=== PATIENT | female | born 1955 ===

== ENCOUNTER 2023-12-23 15:24 | Inpatient (IN) | payer OTHER ==
[~2023-12-23] VITALS: Ht 172.7 cm; Wt 150.5 kg
[2023-12-23] MEDS: DEXTROSE 50%-WATER 25 GM/50 ML SYRINGE IVP ONE ×2 (15:15→15:30)
[2023-12-23 15:36] VITALS: PULSE 89; RESP 18; O2SAT 100
[2023-12-23] MEDS ORDERED: 0.9% SODIUM CHLORIDE 10 ML SYRINGE IVP PRN (15:45)
[2023-12-23] MEDS: NOREPINEPHRINE 8 MG/0.9 % NACL 250 ML IV PRN (15:45)
[2023-12-23 16:00] LABS: HEMATOCRIT 30.3 % (36-46); HEMOGLOBIN 9.3 g/dL (12.0-16.0); MEAN CORPUSCULAR HEMOGLOBIN 28.4 pg (26.0-34.0); MEAN CORPUSCULAR HGB CONC 30.7 G/dL (31.0-37.0); MEAN CORPUSCULAR VOLUME 93 fL (80-100); RED BLOOD CELL COUNT(AUTO) 3.28 MIL/uL (4.00-5.20)
[2023-12-23 16:12] LABS: ABG CARBOXYHEMOGLOBIN 1.3 % (0.0-1.5); ABG HCO3 14.3 mmol/L (22.0-26.0); ABG METHEMOGLOBIN 0.9 % (0.0-1.5); ABG OXYGEN CONTENT 15.2 mL/dL (15.0-23.0); ABG OXYGEN SATURATION 99.8 % (95.0-98.0); ABG OXYHEMOGLOBIN 97.6 % (94.0-100.0); ABG PCO2 31 mmHg (35-45); ABG PH 7.249 (7.35-7.450); ABG TOTAL HEMOGLOBIN 10.1 G/dL (12.0-18.0); ALLEN TEST, BLOOD GAS Positive; PO2, ARTERIAL BG 475.3 mmHg (79.0-87.0); SITE, BLOOD GAS RT RADIAL; SOURCE, BLOOD GAS ARTERIAL; TEMPERATURE, FAHRENHEIT, BG 96.1 FAHREN (96.0-98.6)
[2023-12-23 16:12] LABS: ANION GAP 25 mmol/L (8-16); CALCIUM, TOTAL 10.2 mg/dL (8.8-10.5); CARBON DIOXIDE 17 mmol/L (22-29); CHLORIDE 96 mmol/L (98-107); CREATININE 4.98 mg/dL (0.60-1.30); GLOMERULAR FILTR. RATE CALC 9 mL/min (>60); GLUCOSE,RANDOM 54 mg/dL (70-110); POTASSIUM 5.2 mmol/L (3.5-5.1); SODIUM SERUM 138 mmol/L (136-145); UREA NITROGEN, BLOOD 48 mg/dL (7-18)
[2023-12-23 16:13] LABS: ABG A-A DIFF O2 210.1 mmHg (10-20.0); O2 DEVICE,BLOOD GAS VENTILATOR (ROOM AIR); PEEP,BG 5 cm H2O; SPONTANEOUS VT, BG 453 ml; VT, ABG 430 ml
[2023-12-23 16:15] LABS: INR 3.1 (0.9-1.1); PROTHROMBIN TIME 30.5 SEC (9.4-11.6)
[2023-12-23] MEDS ORDERED: ALLO-45 PO (16:17)
[2023-12-23] MEDS ORDERED: CHOL50002 PO (16:17)
[2023-12-23] MEDS ORDERED: BISA10SU11 PR (16:17)
[2023-12-23] MEDS ORDERED: SIMV-260 PO (16:17)
[2023-12-23] MEDS ORDERED: FOLI-130 PO (16:17)
[2023-12-23] MEDS ORDERED: LACT10SO10 PO (16:17)
[2023-12-23] MEDS ORDERED: LEVO75 PO (16:17)
[2023-12-23] MEDS ORDERED: PHOSLOC PO (16:17)
[2023-12-23] MEDS ORDERED: MINE133E26 PR (16:17)
[2023-12-23] MEDS ORDERED: MIDO5TAB29 PO (16:17)
[2023-12-23] MEDS ORDERED: PRED5DRO25 OS (16:17)
[2023-12-23] MEDS ORDERED: LORA10TA7 PO (16:17)
[2023-12-23] MEDS ORDERED: TUBE5VIA TD (16:17)
[2023-12-23] MEDS ORDERED: APIX5TAB PO (16:17)
[2023-12-23] MEDS ORDERED: ACET-784 PO (16:17)
[2023-12-23] MEDS ORDERED: HYDR-4062 PO (16:17)
[2023-12-23] MEDS ORDERED: OMEP20 PO (16:17)
[2023-12-23] MEDS ORDERED: ALBU18HF12 IH (16:17)
[2023-12-23] MEDS ORDERED: METO25XL PO (16:17)
[2023-12-23] MEDS ORDERED: ACET-2247 PO (16:17)
[2023-12-23] MEDS: SODIUM CHLORIDE 0.9% 2,300 ML IV ONE (16:20)
[2023-12-23] MEDS: ETOMIDATE 2 MG/ML 10 ML VIAL IVP ONE (16:21)
[2023-12-23 16:23] LABS: TROPONIN I-HIGH SENSITIVITY 96 ng/L (<51)
[2023-12-23] MEDS: ROCURONIUM BROMIDE 10 MG/ML 5 ML VIAL IVP ONE (16:23)
[2023-12-23 16:24] LABS: B-TYPE NATRIURETIC PEPTIDE 2420 pg/mL (0-100); LACTIC ACID 12.1 mmol/L (0.4-2.0)
[2023-12-23 16:25] LABS: ALANINE AMINOTRANSFERASE 175 U/L (12-78); ALBUMIN 3.3 g/dL (3.4-5.0); ALKALINE PHOSPHATASE 456 U/L (46-116); ASPARTATE AMINOTRANSFERASE 962 U/L (15-37); BILIRUBIN,TOTAL 4.5 mg/dL (0.1-1.0); TOTAL PROTEIN, SERUM 7.1 g/dL (6.4-8.2)
[2023-12-23 16:45] LABS: PLATELET COUNT (AUTO) 23 K/uL (150-450)
[2023-12-23] MEDS: PIPERACILLIN/TAZO 3.375 GM/D5W 50 ML IV ONE (16:45)
[2023-12-23 16:46] LABS: BAND NEUTROPHILS % (MANUAL) 0 % (0-5)
[2023-12-23 16:48] LABS: CORRECTED WHITE BLOOD COUNT 9.9 K/uL (4.5-11.0); LYMPHOCYTES % (MANUAL) 7 % (22-44); MONOCYTES % (MANUAL) 6 % (2-9); SEGMENTED NEUTROPHILS % 87 % (40-70); TOTAL CELLS COUNTED 100; WHITE BLOOD COUNT (AUTO) 9.9 K/uL (4.5-11.0)
[2023-12-23 16:49] LABS: RBC MORPHOLOGY COMMENT DIMORPHIC RBC
[2023-12-23 17:31] LABS: APPEARANCE,URINE HAZY (CLEAR); BILIRUBIN,URINE NEGATIVE (NEGATIVE); COLOR,URINE DARK YELLOW (YELLOW); GLUCOSE, URINE (UA) TRACE mg/dL (NEGATIVE); KETONES,URINE TRACE mg/dL (NEGATIVE); LEUKOCYTE ESTERASE ,URINE TRACE (NEGATIVE); NITRATE,URINE NEGATIVE (NEGATIVE); OCCULT BLOOD,URINE MODERATE (NEGATIVE); PROTEIN,URINE 30-70 mg/dL (NEGATIVE); SPECIFIC GRAVITIY, URINE 1.026 (1.003-1.030); UROBILINOGEN,URINE <=1.0 mg/dL (<=1.0)
[2023-12-23 17:41] LABS: SQUAMOUS EPITHELIAL CELL,UR Many /LPF (None Seen)
[2023-12-23 17:43] LABS: BACTERIA,URINE Moderate /HPF (None Seen)
[2023-12-23 19:07] LABS: COVID AG,FIA SOURCE NASAL SWAB
[2023-12-23 19:33] VITALS: PULSE 89; RESP 18; O2SAT 99
[2023-12-23 19:34] VITALS: PULSE 89; RESP 18; O2SAT 99
[2023-12-23 20:08] LABS: SARS-COV2 (COVID) ANTIGEN,FIA Negative (Negative)
[2023-12-23] MEDS: VANCOMYCIN 1.75GM/WATER(PEG) 350 ML IV ONE (22:09)
[2023-12-23 22:25] VITALS: PULSE 95; RESP 18; O2SAT 100
[2023-12-23 23:02] VITALS: BP 108/45; RESP 18
[2023-12-23 23:59] VITALS: BP 107/38; PULSE 90; RESP 18
[2023-12-24] VITALS (16 sets, daily range): BP systolic 96–112; BP diastolic 29–54; PULSE 81–90; RESP 18–22; TEMP 94–96.8; O2SAT 99–100
[2023-12-24] MEDS: PIPERACILLIN SODIUM/TAZOBACTAM 2.25 GM in DEXTROSE 5%-WATER 50 ML IV SCH (01:27)
[2023-12-24] MEDS: PROPOFOL 1000 MG/ISO-OSM 100 ML IV PRN ×2 (02:14→06:37)
[2023-12-24 03:06] LABS: GLUCOMETER DEV NAME(LOC) ERT.5; GLUCOSE,POINT OF CARE 84 MG/DL (70-110)
[2023-12-24] MEDS: NOREPINEPHRINE 8 MG/0.9 % NACL 250 ML IV PRN (06:37)
[2023-12-24] MEDS ORDERED: VANCOMYCIN 1GM/WATER(PEG/NADA) 200 ML IV PRN (07:45)
[2023-12-24 08:58] LABS: HEMATOCRIT 31.2 % (36-46); HEMOGLOBIN 9.7 g/dL (12.0-16.0); MEAN CORPUSCULAR HEMOGLOBIN 28.4 pg (26.0-34.0); MEAN CORPUSCULAR HGB CONC 31.2 G/dL (31.0-37.0); MEAN CORPUSCULAR VOLUME 91 fL (80-100); PLATELET COUNT (AUTO) 22 K/uL (150-450); RED BLOOD CELL COUNT(AUTO) 3.43 MIL/uL (4.00-5.20); RED CELL DISTRIBUTION WIDTH 28.2 % (11.5-14.5)
[2023-12-24] MEDS ORDERED: DEXTROSE 50%-WATER 25 GM/50 ML SYRINGE IVP ONE (09:30)
[2023-12-24] MEDS: DEXTROSE 50%-WATER 25 GM/50 ML SYRINGE IVP PRN (09:44)
[2023-12-24] MEDS: POTASSIUM CHLORIDE 15 MEQ in NXSTAGE RFP-402 K0/CA3 5,000 ML IRRIG PRN (09:44)
[2023-12-24 10:06] LABS: CALCIUM, TOTAL 8.9 mg/dL (8.8-10.5); CREATININE 3.45 mg/dL (0.60-1.30); POTASSIUM 4.1 mmol/L (3.5-5.1)
[2023-12-24 10:26] LABS: BAND NEUTROPHILS % (MANUAL) 1 % (0-5); CORRECTED WHITE BLOOD COUNT 13.9 K/uL (4.5-11.0); LYMPHOCYTES % (MANUAL) 8 % (22-44); MONOCYTES % (MANUAL) 10 % (2-9); SEGMENTED NEUTROPHILS % 81 % (40-70); TOTAL CELLS COUNTED 100; WHITE BLOOD COUNT (AUTO) 13.9 K/uL (4.5-11.0)
[2023-12-24 11:16] LABS: GLUCOMETER DEV NAME(LOC) ICU.S6; GLUCOSE,POINT OF CARE < 10 MG/DL (70-110)
[2023-12-24 12:55] LABS: GLUCOMETER DEV NAME(LOC) ICUN.5; GLUCOSE,POINT OF CARE 112 MG/DL (70-110)
[2023-12-24 12:55] LABS: GLUCOMETER DEV NAME(LOC) ICUN.5; GLUCOSE,POINT OF CARE 92 MG/DL (70-110)
[2023-12-24 12:55] LABS: GLUCOMETER DEV NAME(LOC) ICUN.5; GLUCOSE,POINT OF CARE 18 MG/DL (70-110)
[2023-12-24 12:55] LABS: GLUCOMETER DEV NAME(LOC) ICUN.5; GLUCOSE,POINT OF CARE 98 MG/DL (70-110)
[2023-12-24] MEDS ORDERED: SODIUM CITRATE 4% CATH FLUSH 5 ML SYRINGE IVCATH PRN (13:00)
[2023-12-24 13:10] LABS: GLUCOMETER DEV NAME(LOC) ICUN.5; GLUCOSE,POINT OF CARE 101 MG/DL (70-110)
[2023-12-24] MEDS ORDERED: NOREPINEPHRINE 8 MG/0.9 % NACL 250 ML IV PRN (13:30)
[2023-12-24] MEDS: *CLINICAL-RX DOSING [ENTER DRUG IN COMMENTS] CLINICAL ONE (15:41)
[2023-12-24 15:47] LABS: ALBUMIN 2.9 g/dL (3.4-5.0); BILIRUBIN,DIRECT 4.1 mg/dL (0.00-0.20); BILIRUBIN,TOTAL 5.5 mg/dL (0.1-1.0); CALCIUM, TOTAL 8.4 mg/dL (8.8-10.5); CREATININE 2.93 mg/dL (0.60-1.30); MAGNESIUM 2.1 mg/dL (1.80-2.40); PHOSPHORUS 3.7 mg/dL (2.5-4.9); POTASSIUM 3.7 mmol/L (3.5-5.1); TOTAL PROTEIN, SERUM 6.8 g/dL (6.4-8.2)
[2023-12-24] MEDS: CIPROFLOXACIN 400 MG/D5% WATER 200 ML IV SCH (16:28)
[2023-12-24 19:39] LABS: CALCIUM, TOTAL 8.9 mg/dL (8.8-10.5); CREATININE 2.69 mg/dL (0.60-1.30); MAGNESIUM 2.1 mg/dL (1.80-2.40); POTASSIUM 3.6 mmol/L (3.5-5.1)
[2023-12-24 20:46] LABS: GLUCOMETER DEV NAME(LOC) ICU.S6; GLUCOSE,POINT OF CARE 133 MG/DL (70-110)
[2023-12-24] MEDS: NOREPINEPHRINE BITARTRATE 8 MG in DEXTROSE 5%-WATER 242 ML IV PRN (21:27)
[2023-12-24 22:31] LABS: CREATININE 2.41 mg/dL (0.60-1.30); MAGNESIUM 2.2 mg/dL (1.80-2.40); PHOSPHORUS 3.1 mg/dL (2.5-4.9); POTASSIUM 4.3 mmol/L (3.5-5.1)
[2023-12-24] MEDS: PHENYLEPHRINE 200 MG/D5%-WATER 250 ML IV PRN (22:45)
[2023-12-25] VITALS (15 sets, daily range): BP systolic 106–128; BP diastolic 22–49; PULSE 91–105; RESP 18–22; TEMP 95.2–97.6; O2SAT 100
[2023-12-25] MEDS: VASOPRESSIN 40 UNITS in DEXTROSE 5%-WATER 98 ML IV PRN (00:16)
[2023-12-25 01:00] LABS: GLUCOMETER DEV NAME(LOC) ICU.S6; GLUCOSE,POINT OF CARE 106 MG/DL (70-110)
[2023-12-25 01:00] LABS: GLUCOMETER DEV NAME(LOC) ICUN.5; GLUCOSE,POINT OF CARE 83 MG/DL (70-110)
[2023-12-25 02:11] LABS: CREATININE 2.28 mg/dL (0.60-1.30); MAGNESIUM 2.2 mg/dL (1.80-2.40); PHOSPHORUS 2.7 mg/dL (2.5-4.9); POTASSIUM 4.1 mmol/L (3.5-5.1)
[2023-12-25 05:35] LABS: ALBUMIN 2.7 g/dL (3.4-5.0); CALCIUM, TOTAL 8.9 mg/dL (8.8-10.5); CREATININE 2.12 mg/dL (0.60-1.30); HEMATOCRIT 31.4 % (36-46); HEMOGLOBIN 9.9 g/dL (12.0-16.0); MEAN CORPUSCULAR HEMOGLOBIN 28.8 pg (26.0-34.0); MEAN CORPUSCULAR HGB CONC 31.5 G/dL (31.0-37.0); MEAN CORPUSCULAR VOLUME 92 fL (80-100); PLATELET COUNT (AUTO) 20 K/uL (150-450); POTASSIUM 4.5 mmol/L (3.5-5.1); RED BLOOD CELL COUNT(AUTO) 3.44 MIL/uL (4.00-5.20); RED CELL DISTRIBUTION WIDTH 28.3 % (11.5-14.5); TOTAL PROTEIN, SERUM 6.5 g/dL (6.4-8.2); VANCOMYCIN,RANDOM 10.6 mcg/mL (25.0-50.0)
[2023-12-25 05:40] LABS: GLUCOMETER DEV NAME(LOC) ICU.S6; GLUCOSE,POINT OF CARE 129 MG/DL (70-110)
[2023-12-25 05:45] LABS: CREATININE 2.21 mg/dL (0.60-1.30); MAGNESIUM 2.2 mg/dL (1.80-2.40); PHOSPHORUS 2.6 mg/dL (2.5-4.9); POTASSIUM 3.7 mmol/L (3.5-5.1)
[2023-12-25 06:29] LABS: BAND NEUTROPHILS % (MANUAL) 4 % (0-5); LYMPHOCYTES % (MANUAL) 8 % (22-44); MONOCYTES % (MANUAL) 7 % (2-9); SEGMENTED NEUTROPHILS % 81 % (40-70); TOTAL CELLS COUNTED 100
[2023-12-25 06:31] LABS: CORRECTED WHITE BLOOD COUNT 10.6 K/uL (4.5-11.0); WHITE BLOOD COUNT (AUTO) 11.4 K/uL (4.5-11.0)
[2023-12-25 06:32] LABS: RBC MORPHOLOGY COMMENT DIMORPHIC RBC
[2023-12-25] MEDS: VANCOMYCIN 1GM/WATER(PEG/NADA) 200 ML IV ONE (08:27)
[2023-12-25] MEDS ORDERED: DEXMEDETOMIDINE HCL 400 MCG in SODIUM CHLORIDE 0.9% 96 ML IV PRN (09:45)
[2023-12-25] MEDS: PIPERACILLIN/TAZO 3.375 GM/D5W 50 ML IV SCH (10:43)
[2023-12-25 11:07] LABS: CALCIUM, TOTAL 8.7 mg/dL (8.8-10.5); CREATININE 1.96 mg/dL (0.60-1.30); MAGNESIUM 1.8 mg/dL (1.80-2.40); PHOSPHORUS 2.7 mg/dL (2.5-4.9); POTASSIUM 3.8 mmol/L (3.5-5.1)
[2023-12-25] MEDS: CIPROFLOXACIN 400 MG/D5% WATER 200 ML IV SCH (11:23)
[2023-12-25] MEDS: ALBUMIN HUMAN 25%-25GM/100ML 100 ML IV SCH (14:09)
[2023-12-25 14:20] LABS: CALCIUM, TOTAL 8.9 mg/dL (8.8-10.5); CREATININE 1.88 mg/dL (0.60-1.30); PHOSPHORUS 2.2 mg/dL (2.5-4.9); POTASSIUM 3.5 mmol/L (3.5-5.1)
[2023-12-25] MEDS: *CLINICAL-MEROPENEM DOSING CLINICAL ONE (14:39)
[2023-12-25] MEDS ORDERED: NOREPINEPHRINE 8 MG/0.9 % NACL 250 ML IV PRN (15:00)
[2023-12-25 15:16] LABS: GLUCOMETER DEV NAME(LOC) ICUN.5; GLUCOSE,POINT OF CARE 173 MG/DL (70-110)
[2023-12-25] MEDS: MEROPENEM 1 GM in SODIUM CHLORIDE 0.9% 100 ML IV SCH (16:12)
[2023-12-25 18:31] LABS: GLUCOMETER DEV NAME(LOC) ICU.S6; GLUCOSE,POINT OF CARE 155 MG/DL (70-110)
[2023-12-25 18:50] LABS: CALCIUM, TOTAL 8.8 mg/dL (8.8-10.5); CREATININE 1.77 mg/dL (0.60-1.30); MAGNESIUM 1.9 mg/dL (1.80-2.40); PHOSPHORUS 2.1 mg/dL (2.5-4.9); POTASSIUM 3.3 mmol/L (3.5-5.1)
[2023-12-25] MEDS ORDERED: POTASSIUM CHLORIDE 20 MEQ in NXSTAGE RFP-402 K0/CA3 5,000 ML IRRIG PRN (19:30)
[2023-12-25] MEDS: SODIUM CITRATE 4% CATH FLUSH 5 ML SYRINGE IVCATH PRN (22:05)
[2023-12-25 22:27] LABS: CALCIUM, TOTAL 8.7 mg/dL (8.8-10.5); CREATININE 1.69 mg/dL (0.60-1.30); PHOSPHORUS 1.9 mg/dL (2.5-4.9); POTASSIUM 3.3 mmol/L (3.5-5.1)
[2023-12-26] VITALS (22 sets, daily range): BP systolic 121–146; BP diastolic 23–205; PULSE 90–103; RESP 15–20; TEMP 97.5–99.8; O2SAT 100
[2023-12-26 00:41] LABS: GLUCOMETER DEV NAME(LOC) ICU.S6; GLUCOSE,POINT OF CARE 187 MG/DL (70-110)
[2023-12-26 05:21] LABS: GLUCOMETER DEV NAME(LOC) ICU.S6; GLUCOSE,POINT OF CARE 148 MG/DL (70-110)
[2023-12-26 05:51] LABS: BASOPHILS % (AUTO) 0.2 % (0.0-2.0); EOSINOPHILS % (AUTO) 0.6 % (1.0-6.0); HEMATOCRIT 25.6 % (36-46); HEMOGLOBIN 8.3 g/dL (12.0-16.0); LYMPHOCYTES # (AUTO) 0.7 K/uL (1.0-4.8); LYMPHOCYTES % (AUTO) 7.6 % (22.0-44.0); MEAN CORPUSCULAR HEMOGLOBIN 29.9 pg (26.0-34.0); MEAN CORPUSCULAR HGB CONC 32.5 G/dL (31.0-37.0); MEAN CORPUSCULAR VOLUME 92 fL (80-100); MONOCYTES # (AUTO) 0.6 K/uL (0.1-1.0); MONOCYTES % (AUTO) 6.9 % (2.0-9.0); NEUTROPHILS # (AUTO) 7.7 K/uL (1.8-7.7); NEUTROPHILS % (AUTO) 84.7 % (40.0-70.0); PLATELET COUNT (AUTO) 20 K/uL (150-450); RED BLOOD CELL COUNT(AUTO) 2.79 MIL/uL (4.00-5.20); RED CELL DISTRIBUTION WIDTH 28.8 % (11.5-14.5); WHITE BLOOD COUNT (AUTO) 9.1 K/uL (4.5-11.0)
[2023-12-26 06:06] LABS: ALANINE AMINOTRANSFERASE 231 U/L (12-78); ALBUMIN 3.6 g/dL (3.4-5.0); ALKALINE PHOSPHATASE 334 U/L (46-116); ANION GAP 14 mmol/L (8-16); ASPARTATE AMINOTRANSFERASE 729 U/L (15-37); BILIRUBIN,TOTAL 6.9 mg/dL (0.1-1.0); CARBON DIOXIDE 23 mmol/L (22-29); CHLORIDE 97 mmol/L (98-107); CREATININE 1.97 mg/dL (0.60-1.30); GLOMERULAR FILTR. RATE CALC 25 mL/min (>60); GLUCOSE,RANDOM 183 mg/dL (70-110); POTASSIUM 3.3 mmol/L (3.5-5.1); SODIUM SERUM 134 mmol/L (136-145); TOTAL PROTEIN, SERUM 6.3 g/dL (6.4-8.2); UREA NITROGEN, BLOOD 23 mg/dL (7-18); VANCOMYCIN,RANDOM 15.5 mcg/mL (25.0-50.0)
[2023-12-26 07:04] LABS: RBC MORPHOLOGY COMMENT DIMORPHIC RBC
[2023-12-26] MEDS: VANCOMYCIN 1GM/WATER(PEG/NADA) 200 ML IV ONE (11:24)
[2023-12-26] MEDS ORDERED: HEPARIN SODIUM,PORCINE 1,000 UNITS/ML VIAL ONE (12:00)
[2023-12-26] MEDS ORDERED: SODIUM CHLORIDE 0.9% 2,000 ML ONE (12:01)
[2023-12-26 12:21] LABS: GLUCOMETER DEV NAME(LOC) ICUN.5; GLUCOSE,POINT OF CARE 194 MG/DL (70-110)
[2023-12-26 12:21] LABS: GLUCOMETER DEV NAME(LOC) ICUN.5; GLUCOSE,POINT OF CARE 48 MG/DL (70-110)
[2023-12-26] MEDS: CLINDAMYCIN 900 MG/D5% WATER 50 ML IV SCH (14:17)
[2023-12-26] MEDS ORDERED: DEXTROSE 50%-WATER 25 GM/50 ML SYRINGE IVP ONE (15:00)
[2023-12-26] MEDS ORDERED: 0.9% SODIUM CHLORIDE 1,000 ML BAG ONE (15:00)
[2023-12-26 18:26] LABS: GLUCOMETER DEV NAME(LOC) ICU.S6; GLUCOSE,POINT OF CARE 132 MG/DL (70-110)
[2023-12-27] VITALS (23 sets, daily range): BP systolic 107–126; BP diastolic 24–31; PULSE 74–92; RESP 14–19; TEMP 95.5–97.4; O2SAT 100
[2023-12-27 01:51] LABS: GLUCOMETER DEV NAME(LOC) ICU.S6; GLUCOSE,POINT OF CARE 188 MG/DL (70-110)
[2023-12-27 06:07] LABS: ALBUMIN 2.9 g/dL (3.4-5.0); BILIRUBIN,TOTAL 7.6 mg/dL (0.1-1.0); CALCIUM, TOTAL 8.4 mg/dL (8.8-10.5); CREATININE 1.66 mg/dL (0.60-1.30); POTASSIUM 3.7 mmol/L (3.5-5.1); TOTAL PROTEIN, SERUM 5.7 g/dL (6.4-8.2); VANCOMYCIN,RANDOM 18.1 mcg/mL (25.0-50.0)
[2023-12-27 06:35] LABS: GLUCOMETER DEV NAME(LOC) ICUN.5; GLUCOSE,POINT OF CARE 180 MG/DL (70-110)
[2023-12-27] MEDS ORDERED: SODIUM CHLORIDE 0.9% 1,000 ML ONE (08:33)
[2023-12-27 09:18] LABS: HEMATOCRIT 26.1 % (36-46); HEMOGLOBIN 8.1 g/dL (12.0-16.0); MEAN CORPUSCULAR HEMOGLOBIN 28.7 pg (26.0-34.0); MEAN CORPUSCULAR HGB CONC 30.9 G/dL (31.0-37.0); MEAN CORPUSCULAR VOLUME 93 fL (80-100); RED BLOOD CELL COUNT(AUTO) 2.81 MIL/uL (4.00-5.20); RED CELL DISTRIBUTION WIDTH 29.2 % (11.5-14.5); WHITE BLOOD COUNT (AUTO) 11.6 K/uL (4.5-11.0)
[2023-12-27 09:37] LABS: PLATELET COUNT (AUTO) 16 K/uL (150-450)
[2023-12-27] MEDS: VANCOMYCIN 1GM/WATER(PEG/NADA) 200 ML IV ONE (10:10)
[2023-12-27] MEDS: CIPROFLOXACIN 400 MG/D5% WATER 200 ML IV SCH (11:29)
[2023-12-27 12:17] LABS: BAND NEUTROPHILS % (MANUAL) 4 % (0-5); LYMPHOCYTES % (MANUAL) 8 % (22-44); MONOCYTES % (MANUAL) 5 % (2-9); SEGMENTED NEUTROPHILS % 83 % (40-70); TOTAL CELLS COUNTED 100
[2023-12-27 12:18] LABS: RBC MORPHOLOGY COMMENT DIMORPHIC
[2023-12-27 12:26] LABS: GLUCOMETER DEV NAME(LOC) ICU.S6; GLUCOSE,POINT OF CARE 128 MG/DL (70-110)
[2023-12-27] MEDS ORDERED: SODIUM CITRATE 4% CATH FLUSH 5 ML SYRINGE IVCATH PRN ×2 (13:00→13:15)
[2023-12-27] MEDS: SODIUM CITRATE 4% CATH FLUSH 5 ML SYRINGE IVCATH PRN (14:14)
[2023-12-27] MEDS: MEROPENEM 500 MG in SODIUM CHLORIDE 0.9% 50 ML IV SCH (14:52)
[2023-12-27] MEDS ORDERED: MEROPENEM 1 GM in SODIUM CHLORIDE 0.9% 100 ML IV SCH (15:00)
[2023-12-27 18:16] LABS: GLUCOMETER DEV NAME(LOC) ICU.S6; GLUCOSE,POINT OF CARE 156 MG/DL (70-110)
[2023-12-28] VITALS (14 sets, daily range): BP systolic 95–115; BP diastolic 28–62; PULSE 88–99; RESP 18–22; TEMP 96.1–98.8; O2SAT 100
[2023-12-28 01:36] LABS: GLUCOMETER DEV NAME(LOC) ICU.S6; GLUCOSE,POINT OF CARE 165 MG/DL (70-110)
[2023-12-28 06:13] LABS: ALBUMIN 2.9 g/dL (3.4-5.0); BILIRUBIN,TOTAL 8.9 mg/dL (0.1-1.0); CALCIUM, TOTAL 8.7 mg/dL (8.8-10.5); CREATININE 1.69 mg/dL (0.60-1.30); MAGNESIUM 1.8 mg/dL (1.80-2.40); POTASSIUM 3.5 mmol/L (3.5-5.1); TOTAL PROTEIN, SERUM 5.8 g/dL (6.4-8.2)
[2023-12-28 06:14] LABS: HEMATOCRIT 26.3 % (36-46); HEMOGLOBIN 8.7 g/dL (12.0-16.0); MEAN CORPUSCULAR HEMOGLOBIN 30.1 pg (26.0-34.0); MEAN CORPUSCULAR VOLUME 91 fL (80-100); RED BLOOD CELL COUNT(AUTO) 2.88 MIL/uL (4.00-5.20); RED CELL DISTRIBUTION WIDTH 30.1 % (11.5-14.5)
[2023-12-28 06:16] LABS: PLATELET COUNT (AUTO) 16 K/uL (150-450)
[2023-12-28 08:00] LABS: BAND NEUTROPHILS % (MANUAL) 2 % (0-5); LYMPHOCYTES % (MANUAL) 4 % (22-44); MONOCYTES % (MANUAL) 8 % (2-9); SEGMENTED NEUTROPHILS % 86 % (40-70); TOTAL CELLS COUNTED 100
[2023-12-28 08:01] LABS: RBC MORPHOLOGY COMMENT DIMORPHIC
[2023-12-28 08:06] LABS: LDL CHOLESTEROL DIRECT 0 mg/dL (0-99)
[2023-12-28 13:58] LABS: ABG BASE EXCESS -1.6 mmol/L (-2.0-3.0); ABG CARBOXYHEMOGLOBIN 1.1 % (0.0-1.5); ABG HCO3 23.3 mmol/L (22.0-26.0); ABG METHEMOGLOBIN 0.3 % (0.0-1.5); ABG OXYGEN CONTENT 13.9 mL/dL (15.0-23.0); ABG OXYGEN SATURATION 99.3 % (95.0-98.0); ABG OXYHEMOGLOBIN 97.9 % (94.0-100.0); ABG PCO2 39 mmHg (35-45); ABG PH 7.392 (7.35-7.450); ABG TOTAL HEMOGLOBIN 9.9 G/dL (12.0-18.0); PO2, ARTERIAL BG 142.7 mmHg (79.0-87.0); SOURCE, BLOOD GAS ARTERIAL; TEMPERATURE, FAHRENHEIT, BG 97.5 FAHREN (96.0-98.6)
[2023-12-28 13:59] LABS: O2 DEVICE,BLOOD GAS VENTILATOR (ROOM AIR); PEEP,BG 5 cm H2O; SITE, BLOOD GAS ARTERIAL LINE; VT, ABG 400 ml
[2023-12-28 14:00] LABS: SPONTANEOUS VT, BG 461 ml
[2023-12-28 14:21] LABS: GLUCOMETER DEV NAME(LOC) ICUN.5; GLUCOSE,POINT OF CARE 130 MG/DL (70-110)
[2023-12-28 18:36] LABS: GLUCOMETER DEV NAME(LOC) ICUN.5; GLUCOSE,POINT OF CARE 120 MG/DL (70-110)
[2023-12-28] MEDS: SIMVASTATIN 20 MG TABLET PO SCH (20:34)
[2023-12-28] MEDS: MIDODRINE HCL 5 MG TABLET PO SCH (20:34)
[2023-12-28] MEDS: PANTOPRAZOLE SODIUM 40 MG/VIAL IVP SCH (20:34)
[2023-12-29] VITALS (24 sets, daily range): BP systolic 93–116; BP diastolic 24–62; PULSE 87–104; RESP 15–23; TEMP 96.2–98.1; O2SAT 100
[2023-12-29 03:16] LABS: GLUCOMETER DEV NAME(LOC) ICUN.5; GLUCOSE,POINT OF CARE 131 MG/DL (70-110)
[2023-12-29 06:08] LABS: HEMATOCRIT 27.5 % (36-46); HEMOGLOBIN 8.9 g/dL (12.0-16.0); MEAN CORPUSCULAR HEMOGLOBIN 29.1 pg (26.0-34.0); MEAN CORPUSCULAR HGB CONC 32.4 G/dL (31.0-37.0); MEAN CORPUSCULAR VOLUME 90 fL (80-100); RED BLOOD CELL COUNT(AUTO) 3.06 MIL/uL (4.00-5.20); RED CELL DISTRIBUTION WIDTH 31.1 % (11.5-14.5)
[2023-12-29 06:11] LABS: ALBUMIN 2.6 g/dL (3.4-5.0); BILIRUBIN,TOTAL 10.3 mg/dL (0.1-1.0); CALCIUM, TOTAL 8.6 mg/dL (8.8-10.5); CREATININE 2.18 mg/dL (0.60-1.30); TOTAL PROTEIN, SERUM 5.9 g/dL (6.4-8.2); VANCOMYCIN,RANDOM 21.5 mcg/mL (25.0-50.0)
[2023-12-29 06:15] LABS: GLUCOMETER DEV NAME(LOC) ICUN.5; GLUCOSE,POINT OF CARE 128 MG/DL (70-110)
[2023-12-29 07:03] LABS: PLATELET COUNT (AUTO) 19 K/uL (150-450)
[2023-12-29 07:04] LABS: BAND NEUTROPHILS % (MANUAL) 4 % (0-5); CORRECTED WHITE BLOOD COUNT 12.6 K/uL (4.5-11.0); LYMPHOCYTES % (MANUAL) 7 % (22-44); MONOCYTES % (MANUAL) 9 % (2-9); SEGMENTED NEUTROPHILS % 80 % (40-70); TOTAL CELLS COUNTED 100
[2023-12-29 07:05] LABS: RBC MORPHOLOGY COMMENT DIMORPHIC RBC; WHITE BLOOD COUNT (AUTO) 12.6 K/uL (4.5-11.0)
[2023-12-29] MEDS: LORATADINE 10 MG TABLET PO SCH (08:43)
[2023-12-29 09:55] LABS: MAGNESIUM 1.8 mg/dL (1.80-2.40)
[2023-12-29] MEDS ORDERED: ALBUMIN HUMAN 25%-50GM/200ML 200 ML IV PRN (10:30)
[2023-12-29] MEDS ORDERED: ALBUMIN HUMAN 25%-25GM/100ML 100 ML IV PRN (11:42)
[2023-12-29] MEDS: ALBUMIN HUMAN 25%-25GM/100ML 100 ML IV ONE (11:55)
[2023-12-29] MEDS ORDERED: HEPARIN SODIUM,PORCINE 1,000 UNITS/ML VIAL IVP ONE (12:00)
[2023-12-29] MEDS ORDERED: ALBUMIN HUMAN 25%-12.5GM/50ML IV BOTTLE IV ONE (12:00)
[2023-12-29] MEDS: VANCOMYCIN 500 MG/WATER(PEG) 100 ML IV ONE (16:00)
[2023-12-29] MEDS: METOCLOPRAMIDE HCL 5 MG/ML 2 ML VIAL IVP PRN (22:47)
[2023-12-30] VITALS (8 sets, daily range): BP systolic 77–97; BP diastolic 27–40; PULSE 98–124; RESP 19–23; TEMP 98.2–98.3; O2SAT 93–100
[2023-12-30 00:40] LABS: GLUCOMETER DEV NAME(LOC) ICU.S6; GLUCOSE,POINT OF CARE 142 MG/DL (70-110)
[2023-12-30] MEDS ORDERED: VANCOMYCIN 1GM/WATER(PEG/NADA) 200 ML IV ONE (05:00)
[2023-12-30 05:40] LABS: GLUCOMETER DEV NAME(LOC) ICUN.5; GLUCOSE,POINT OF CARE 164 MG/DL (70-110)
[2023-12-30 06:01] LABS: HEMATOCRIT 25.7 % (36-46); HEMOGLOBIN 8.5 g/dL (12.0-16.0); MEAN CORPUSCULAR HEMOGLOBIN 29.7 pg (26.0-34.0); MEAN CORPUSCULAR VOLUME 90 fL (80-100); RED BLOOD CELL COUNT(AUTO) 2.85 MIL/uL (4.00-5.20); RED CELL DISTRIBUTION WIDTH 32.4 % (11.5-14.5)
[2023-12-30 06:09] LABS: ALBUMIN 2.9 g/dL (3.4-5.0); BILIRUBIN,TOTAL 11.6 mg/dL (0.1-1.0); CALCIUM, TOTAL 8.7 mg/dL (8.8-10.5); CREATININE 1.78 mg/dL (0.60-1.30); POTASSIUM 4.2 mmol/L (3.5-5.1)
[2023-12-30 06:36] LABS: WHITE BLOOD COUNT (AUTO) 11.6 K/uL (4.5-11.0)
[2023-12-30 06:38] LABS: RBC MORPHOLOGY COMMENT DIMORPHIC RBC
[2023-12-30 06:40] LABS: PLATELET COUNT (AUTO) 18 K/uL (150-450)
[2023-12-30 06:42] LABS: BAND NEUTROPHILS % (MANUAL) 5 % (0-5); LYMPHOCYTES % (MANUAL) 8 % (22-44); MONOCYTES % (MANUAL) 10 % (2-9); SEGMENTED NEUTROPHILS % 77 % (40-70); TOTAL CELLS COUNTED 100
[2023-12-30 07:12] LABS: RETICULOCYTE % (AUTO) 5.4 % (0.5-2.3)
[2023-12-30] MEDS ORDERED: DOPamine 400MG/D5W[STANDARD] 250 ML IV ONE (08:23)
[2023-12-30] MEDS: DOPamine 400MG/D5W[STANDARD] 250 ML IV PRN (10:37)
[2023-12-30] MEDS ORDERED: MORPHINE SULFATE 4 MG/ML SYRINGE IM ONE (12:45)
[2023-12-30] MEDS: MORPHINE SULFATE 4 MG/ML SYRINGE IVP ONE (13:01)
== END 2023-12-30 13:54 | DRG 870 ==
LOC: EMS 15:26 → ICU 17:40
PROVIDERS: ADMIT Hospitalist; ATTEND Hospitalist
PROC: 5A1955Z Respiratory Ventilation, Greater than 96 Consecutive Hours (ICD-10-PCS; principal; 2023-12-23)
PROC: 0BH17EZ Insertion of Endotracheal Airway into Trachea, Via Natural or Artificial Opening (ICD-10-PCS; 2023-12-23)
PROC: 5A1D70Z Performance of Urinary Filtration, Intermittent, Less than 6 Hours Per Day (ICD-10-PCS; 2023-12-26)
PROC: 5A1D70Z Performance of Urinary Filtration, Intermittent, Less than 6 Hours Per Day (ICD-10-PCS; 2023-12-27)
PROC: 5A1D70Z Performance of Urinary Filtration, Intermittent, Less than 6 Hours Per Day (ICD-10-PCS; 2023-12-29)
DX: A41.9 Sepsis, unspecified organism (principal); J96.00 Acute respiratory failure, unspecified whether with hypoxia or hypercapnia; N18.6 End stage renal disease; R65.21 Severe sepsis with septic shock; N17.0 Acute kidney failure with tubular necrosis; J18.9 Pneumonia, unspecified organism; D65 Disseminated intravascular coagulation [defibrination syndrome]; Z68.43 Body mass index [BMI] 50.0-59.9, adult; B17.9 Acute viral hepatitis, unspecified; G93.40 Encephalopathy, unspecified; I13.2 Hypertensive heart and chronic kidney disease with heart failure and with stage 5 chronic kidney disease, or end stage renal disease; I42.9 Cardiomyopathy, unspecified; I50.22 Chronic systolic (congestive) heart failure; I48.92 Unspecified atrial flutter; E87.1 Hypo-osmolality and hyponatremia; I82.621 Acute embolism and thrombosis of deep veins of right upper extremity; L51.2 Toxic epidermal necrolysis [Lyell]; Z99.2 Dependence on renal dialysis; Z66 Do not resuscitate; E11.22 Type 2 diabetes mellitus with diabetic chronic kidney disease; E66.01 Morbid (severe) obesity due to excess calories; Z20.822 Contact with and (suspected) exposure to COVID-19; E11.51 Type 2 diabetes mellitus with diabetic peripheral angiopathy without gangrene; I25.10 Atherosclerotic heart disease of native coronary artery without angina pectoris; D63.1 Anemia in chronic kidney disease; I35.1 Nonrheumatic aortic (valve) insufficiency; I89.0 Lymphedema, not elsewhere classified; I35.8 Other nonrheumatic aortic valve disorders; K21.9 Gastro-esophageal reflux disease without esophagitis; M10.9 Gout, unspecified; T45.515A Adverse effect of anticoagulants, initial encounter; E03.9 Hypothyroidism, unspecified; E11.649 Type 2 diabetes mellitus with hypoglycemia without coma; S20.121A Blister (nonthermal) of breast, right breast, initial encounter; Y92.89 Other specified places as the place of occurrence of the external cause; Z88.3 Allergy status to other anti-infective agents; Z88.2 Allergy status to sulfonamides; Z95.2 Presence of prosthetic heart valve
CPT/HCPCS: 36600; 71045; 76700; 80048; 80053; 80076; 80202; 81001; 82805; 82962; 83010; 83605; 83615; 83721; 83735; 83880; 84100; 84145; 84484; 85025; 85045; 85610; 87040; 87070; 87081; 87086; 87186; 87205; 87340; 87481; 90935; 90947; 93005; 93306; 93971; 94002; 94003; 99285; C9113; J0744; J1265; J1644; J2185; J2270; J2370; J2543; J2704; J2765; J3480; J3490; J7030; J7050; J7060; P9046; P9047; Q9967; 36415-L1; 36415-TC